=== PATIENT | female | born 1950 | race Caucasian/White ===

== ENCOUNTER → 2020-07-22 14:24 | Outpatient (CLI) | payer MEDICARE, SELFPAY | PROVIDERS: Visit Provider Urology | DX: R07.9 Chest pain, unspecified (principal); R00.2 Palpitations | CPT/HCPCS: 36415; 84436; 84443; 84479 ==

== ENCOUNTER → 2020-07-22 14:43 | Outpatient (CLI) | payer MEDICARE, SELFPAY ==
[2020-07-22 15:46] LABS: Free Thyroxine Index 4.1 ug/dL (5.93-13.13); T4 (Thyroxine) 11.7 ug/dl (5.53-11.0); Triiodothryronine (T3) Uptake 35 % (23.5-40.5)
[2020-07-22 16:00] LABS: Thyroid Stimulating Hormone 2.61 uIU/mL (0.465-4.68)
== END ==
PROVIDERS: PCP Family Medicine; Visit Provider Urology
DX: R07.9 Chest pain, unspecified (principal); R00.2 Palpitations; Z79.899 Other long term (current) drug therapy
CPT/HCPCS: 36415; 84436; 84443; 84479; 93270

== ENCOUNTER → 2020-08-14 06:53 | Outpatient (CLI) | payer MEDICARE, SELFPAY ==
--- NOTE | 2020-08-14 | CA_ITS ---
APPROVED REPORT Exam: Pharmacologic Technologist: Ruby Cline Ht: 5 ft 4 in Wt: 150 lbs BSA: 1.73 m2 HR: 86 bpm BP: 127/79 mmHg Indications: Chest pain, Palpitations Medical History Medications: Lisinopril,,,,, Aspirin,,,,, CHlorthalidone,,,,, Vitamin D2,,,,, Multivitamin with iron,,,,, Stress Test Details Test: LEXISCAN HR Resting HR: 90 bpm Max Heart Rate (APMHR): 151 bpm Max HR Achieved: 130 bpm Target HR (85% APMHR): 128 bpm % of APMHR: 86 Recovery HR: 97 bpm BP Resting BP: 127.0/79.0 mmHg Max BP: 127.0/79.0 mmHg Recovery BP: 107.0/55.0 mmHg ECG Clinical Exercise duration: 04:00 min Highest Stage Achieved: Exercise capacity: 1.0 METs Stress ECG Conclusion Resting EKG: Normal sinus rhythm, PVC's, BILLIE, borderline for LAE, LVH with ST-T abnormalities inferiorly and laterally suggesting strain pattern. Switched from exercise due to concerns for possible severe - loud, blowing systolic murmur at right uppper sternal border and LVH with strain pattern on EKG. Symptoms: Shortness of air, malaise. No chest pain. Arrhythmias/Ectopy: Frequent isolated PVCs. ST-T Changes: Exaggeration of baseline abnormalities. Conclusion: Non-diagnostic Lexiscan stress. Myoview images reported separately. Test Summary REST . . . . . . . Resting REST 06:07 . . 90 . 127/ 79 . . Stage 1 . . . . . . . Myoview Injected Stage 1 01:00 . . 122 . . . . Stage 2 01:00 . . 124 . . . . Stage 3 01:00 . . 119 . 121/ 59 . . Stage 4 01:00 . . 108 . 118/ 74 . Stop exercise at 04:00 RECOVERY 01:00 . . 103 . 108/ 52 . . RECOVERY 02:00 . . 104 . 108/ 52 . . RECOVERY 03:00 . . 100 . 108/ 52 . . RECOVERY 04:00 . . 109 . 107/ 55 . . RECOVERY 04:27 . . 105 . 107/ 55 . . Electronically signed by : Jroden Rios, 08/15/2020 12:58:32
--- NOTE | 2020-08-14 06:54 | NM_ITS ---
APPROVED REPORT Exam: Nuclear Stress Test Indication: Chest pain, Palpitations, HTN Patient Location: Outpatient Stress Tech: Ruby Cline NM Tech:Lisbeth Croft, ARRT, RT (R)(N) Ht: 5 ft 4 in Wt: 148 lbs Bra Size: 36A HR: 86 bpm BP: 127/79 mmHg BSA: 1.72 m2 BMI: 25.4 History: Chest pain, Palpitations, HTN Procedure: Patient received a 0.4 mg of intravenous Lexiscan, resting heart rate 86 bpm, resting blood pressure 127/79 mmHg, with Lexiscan maximum heart rate achived was 121 bpm which is Less than 85 % of the maximum predicted heart rate and blood pressure was 121/59 mmHg. With Lexiscan, patient denied any complaint of chest pain. Electrocardiogram Resting electrocardiogram showed sinus rhythm nonspecific ST-T changes, with Lexiscan there is less than 1.[address] segment depression noted from the baseline EKG. The EKG portion of the Lexiscan is nondiagnostic. Cardiac Stress and Resting SPECT Images: Cardiac Stress and Resting SPECT images were obtained using technetium 99m Myoview 30.9 mCi stress and 10.67 mCi at rest. Gated SPECT for analysis of segmental wall motion and calculation of the ejection fraction also done. Prone images were also obtained. Cardiac stress and resting SPECT images show uniform myocardial activity without segmental perfusion abnormality, computer derived ejection fraction is 44%, there is abnormal septal motion. Right ventricle is normal size and contractility. Conclusion: 1. The EKG portion of the Lexiscan is nondiagnostic. 2. No scintigraphic evidence of reversible ischemia seen, computer derived ejection fraction is 44% with abnormal septal motion, right ventricle is normal size and contractility. Electronically signed by : Jorden Rios, 08/15/2020 13:42:43
--- NOTE | 2020-08-14 08:56 | HMH.ITSHM ---
Current Home Medications as stated by this patient Inez Lopez or career services representative. []LISINOPRIL HCTZ VITAMIN D ASA IRON
== END ==
PROVIDERS: PCP Family Medicine; Visit Provider Urology
DX: I10 Essential (primary) hypertension (principal); R00.2 Palpitations; R07.9 Chest pain, unspecified
CPT/HCPCS: 78452; 93017; A9502; J2785

== ENCOUNTER → 2020-08-28 14:50 | Outpatient (CLI) | payer MEDICARE, SELFPAY ==
[2020-08-28 15:36] LABS: Basophils # 0.1 K/mm3 (0-0.2); Basophils % 0.8 % (0.1-2.0); Eosinophils # 0.1 K/mm3 (0.0-0.4); Hematocrit 42.2 % (37.0-47.0); Hemoglobin 13.4 g/dL (12.2-16.2); Lymphocytes # 2.1 K/mm3 (0.7-4.5); Lymphocytes % 26.9 % (10-50); Mean Corpuscular HGB Conc 31.8 g/dL (31.8-35.4); Mean Corpuscular Hemoglobin 25.9 pg (27.0-31.2); Mean Corpuscular Volume 81.3 fl (81-99); Mean Platelet Volume 6.9 fl (7.4-10.4); Monocytes # 0.4 K/mm3 (0.1-1.0); Monocytes % 4.7 % (1.7-9.3); Neutrophils # 5.2 K/mm3 (1.8-7.8); Neutrophils % 66.5 % (37.0-80.0); Platelet Count 270 K/mm3 (142-424); Red Blood Count 5.19 M/mm3 (4.20-5.40); Red Cell Distribution Width 15.9 % (11.5-17.5); White Blood Count 7.9 K/mm3 (4.8-10.8)
[2020-08-28 15:42] LABS: Chloride 100 mmol/L (98-107); Potassium 4.2 mmoL/L (3.5-5.1); Sodium 137 mmol/L (136-145)
[2020-08-28 15:45] LABS: Anion Gap 14.2 mEq/L (5-15); Blood Urea Nitrogen 24 mg/dl (7-17); Carbon Dioxide 27 mmol/L (22.0-30.0); Estimated Glomerular Filt Rate 41 ml/min (>60); GFR (African American) 49 ML/MIN (>60)
[2020-08-28 15:46] LABS: Calcium 10.4 mg/dl (8.4-10.2); Glucose 143 mg/dl (74-100)
[2020-08-28 15:57] LABS: Coronavirus 19 IgG Antibody Positive (Negative)
[2020-08-28 16:01] LABS: Coronavirus 19 IgM Antibody Positive (Negative)
== END ==
PROVIDERS: Visit Provider Urology
DX: I34.0 Nonrheumatic mitral (valve) insufficiency; I35.1 Nonrheumatic aortic (valve) insufficiency; I51.9 Heart disease, unspecified; R94.30 Abnormal result of cardiovascular function study, unspecified; I20.8 Other forms of angina pectoris; Z20.822 Contact with and (suspected) exposure to COVID-19; Z01.818 Encounter for other preprocedural examination; U07.1 COVID-19
CPT/HCPCS: 36415; 80048; 85025; 86328

== ENCOUNTER → 2020-08-29 10:29 | Outpatient (CLI) | payer MEDICARE, SELFPAY | PROVIDERS: PCP Family Medicine; Visit Provider Internal Medicine | DX: R76.8 Other specified abnormal immunological findings in serum (principal); U07.1 COVID-19 | CPT/HCPCS: U0003 ==

== ENCOUNTER → 2020-09-11 14:34 | Outpatient (CLI) | payer MEDICARE, SELFPAY ==
[2020-09-11 15:31] LABS: Anion Gap 15.5 mEq/L (5-15); Blood Urea Nitrogen 23 mg/dl (7-17); Calcium 9.9 mg/dl (8.4-10.2); Carbon Dioxide 27 mmol/L (22.0-30.0); Chloride 98 mmol/L (98-107); Estimated Glomerular Filt Rate 45 ml/min (>60); GFR (African American) 54 ML/MIN (>60); Glucose 175 mg/dl (74-100); Potassium 4.5 mmoL/L (3.5-5.1); Sodium 136 mmol/L (136-145)
[2020-09-11 15:48] LABS: Basophils # 0.1 K/mm3 (0-0.2); Basophils % 0.8 % (0.1-2.0); Eosinophils # 0.1 K/mm3 (0.0-0.4); Eosinophils % 0.9 % (0.1-12.0); Hematocrit 40.1 % (37.0-47.0); Hemoglobin 13.3 g/dL (12.2-16.2); Lymphocytes # 1.9 K/mm3 (0.7-4.5); Lymphocytes % 25.4 % (10-50); Mean Corpuscular HGB Conc 33.1 g/dL (31.8-35.4); Mean Corpuscular Hemoglobin 26.2 pg (27.0-31.2); Mean Corpuscular Volume 79.1 fl (81-99); Mean Platelet Volume 7.2 fl (7.4-10.4); Monocytes # 0.3 K/mm3 (0.1-1.0); Monocytes % 4.3 % (1.7-9.3); Neutrophils # 5.2 K/mm3 (1.8-7.8); Neutrophils % 68.6 % (37.0-80.0); Platelet Count 268 K/mm3 (142-424); Red Blood Count 5.07 M/mm3 (4.20-5.40); Red Cell Distribution Width 15.7 % (11.5-17.5); White Blood Count 7.6 K/mm3 (4.8-10.8)
[2020-09-12 11:46] LABS: Coronavirus 19 IgG Antibody Positive (Negative)
[2020-09-12 11:49] LABS: Coronavirus 19 IgM Antibody Positive (Negative)
== END ==
PROVIDERS: Visit Provider Urology
DX: I20.9 Angina pectoris, unspecified (principal); I34.0 Nonrheumatic mitral (valve) insufficiency; I35.1 Nonrheumatic aortic (valve) insufficiency; R94.30 Abnormal result of cardiovascular function study, unspecified; Z01.818 Encounter for other preprocedural examination; Z20.822 Contact with and (suspected) exposure to COVID-19; Z86.16 Personal history of COVID-19
CPT/HCPCS: 36415; 80048; 85025; 86328

== ENCOUNTER 2020-09-13 08:45 | Day surgery (SDC) | payer MEDICARE, SELFPAY ==
[2020-09-13] VITALS (16 sets, daily range): BP systolic 78–117; BP diastolic 39–61; PULSE 77–101; RESP 16–18; TEMP 36.6; O2SAT 92–100; BMI 25.4
--- NOTE | 2020-09-13 07:08 | IR_ITS ---
APPROVED REPORT Patient Location: Outpatient Lathe Spotter: DEE Vergara RT (R) PROCEDURES Left heart catheterization Left ventriculogram Selective coronary angiogram INDICATION High risk abnormal Myoview, Reduced ejection fraction Informed consent was obtained prior to the procedure. COMPLICATIONS NONE Estimated Blood Loss: LESS THAN 10 ML TECHNIQUE One percent lidocaine used to anesthetize the right anterior aspect of the wrist. The right radial artery was accessed via the Seldinger technique. A 6 [place] sheath was placed in the right radial artery. 2.5 mg of verapamil, 800 mcg of nitroglycerin, 1mg Lidocaine and 5000 U Heparin were given through the arterial sheath. A Actifiopa catheter was also used to perform left heart catheterization, left ventriculogram and selective coronary angiogram. At the end of the procedure the sheath was removed good hemostasis was achieved using Traclet band, patient was transferred to the postop holding area in stable condition. ANGIOGRAPHIC RESULTS The left main artery Normal The left anterior descending artery Has mild proximal 10% luminal irregularities The circumflex artery Nondominant with mild diffuse 10% luminal irregularities The right coronary artery Massively large dominant with mild 10% luminal irregularities The MCCOY ventriculogram reveals Reduced 40 to 45% The left ventricular end-diastolic pressure 10 mmHg 120 to 125 mm transaortic valve gradient was identified on catheter pullback IMPRESSION Mild nonflow limiting coronary artery disease Reduced ejection fraction Critical aortic stenosis PLAN 1. Echocardiogram today 2. Efforts will be made to have patient evaluated for aortic valve replacement Electronically signed by : Fadi Mcmanus, 09/13/2020 10:32:19
--- NOTE | 2020-09-13 10:35 | CA_ITS ---
APPROVED REPORT EXAM: Comprehensive 2D, Doppler, and color-flow Echocardiogram Automatic Lathe Tender: Xin Silverio RVT Ht: 5 ft 4 in Wt: 148lbs BSA: 1.72 BP: 74/52 mmHg Indications: severe as on cath,cp,htn 2D Dimensions LVOT 0.71 cm (M/F) 1.5-2.5 M-Mode Dimensions RVDd 1.06 cm (0.9-2.6) LA Diam 3.06 cm (1.9-4.0) LVDd 4.90 cm (3.5-5.7) Ao Diam 2.58 cm (2.0-3.7) LVDs 3.12 cm (3.5-5.7) IVSd 1.29 cm (0.6-1.1) PWd 0.95 cm (0.6-1.1) EF (Teich) 65.90% FS 36.30% EDV (Teich) 112.80 mL ESV (Teich) 38.50 mL LV Diastology E Decel Time 150.00 (160-240 msec) E/A Ratio 1.1 MED E' 4.00 (< 7 cm/sec) E'/MED E' Ratio 17.07 (>14) LAT E' 5.20 (<10 cm/sec) E/LAT E' Ratio 13.13 (>14) Aortic Valve LVOT Max 79.00 (70-110 cm/s) LVOT VTI 19.29 cm AoV Peak Luis. 289.00 (50-130 cm/s) AI PHT 680.00 ms AO Peak GR. 33.50 mmHg AO Mean GR. 21.30 (<5 mmHg) AO VTI 75.42 (18-25 cm) MARCELO (VTI) 0.10 (2.5-4.5 cm2) Mitral Valve MV E Max Luis. 68.00 (40-130 cm/s) MV A Velocity 62.00 (40-130 cm/s) E/A Ratio 1.10 MV Decel. Time 150.00 (160-240 ms) MV PHT 44.00 ms Pulmonary Valve PV Peak Velocity 163.00 (50-150 cm/s) Tricuspid Valve TR P. Velocity 178.00 cm/s RAP Estimate 10.00 mmHg RVSP 22.70 mmHg Left Ventricle Left atrium is mildly enlarged, left ventricle is normal size, mild concentric left ventricular hypertrophy, visually estimated ejection fraction 45 to 50% with no regional wall motion abnormality, diastolic parameters are inconclusive. Doppler evidence of low cardiac output state seen. Right Ventricle Right atrium and right ventricle are normal size and contractility. Aortic Valve Aortic valve is thickened and calcified with severe restriction to leaflet mobility, morphologically there is severe aortic stenosis, there is moderate aortic insufficiency, aortic outflow velocity is not accurately recorded for calculation of the aortic valve area. Mitral Valve Mitral valve leaflets are minimally thickened, there is mild mitral regurgitation. Tricuspid Valve Tricuspid grossly normal, there is mild tricuspid regurgitation, tricuspid regurgitation jet velocity is inadequate for calculation of the right ventricular systolic pressure. Pulmonic Valve Pulmonic valve is poorly visualized. Great Vessels Aortic root is normal size. Pericardium No significant pericardial effusion noted. Conclusion 1. Mildly enlarged left atrium, normal left ventricular size, mild concentric left ventricular hypertrophy, visually estimated ejection fraction 45 to 50% with no regional wall motion abnormality, Doppler evidence of low cardiac output state seen. 2. Thickened and calcified aortic valve with severe restriction to leaflet mobility, morphologically there is severe aortic stenosis, there is moderate aortic insufficiency. Aortic valve area is not accurately calculated in this study. 3. Mild mitral and tricuspid regurgitation. 4. No significant pericardial effusion noted. Electronically signed by : Jorden Rios, 09/13/2020 14:50:43
--- NOTE | 2020-09-13 15:38 | SUR.PHASEII ---
report called to Inessa boyd at [address]
[2020-09-13 17:42] LABS: Adenovirus,PCR Not Detected (NotDetected); Bordetella Pertussis Not Detected (NotDetected); Chlamydophila Pneumoniae, PCR Not Detected (NotDetected); Coronavirus 19, PCR Not Detected (NotDetected); Coronavirus 229E Not Detected (NotDetected); Coronavirus NL63 Not Detected (NotDetected); Coronavirus OC43 Not Detected (NotDetected); Coronovirus HKU1,PCR Not Detected (NotDetected); Human Metapneumovirus Not Detected (NotDetected); Influenza A, PCR Not Detected (NotDetected); Influenza AH1, 2009 Not Detected (NotDetected); Influenza AH1, PCR Not Detected (NotDetected); Influenza AH3,PCR Not Detected (NotDetected); Influenza B, PCR Not Detected (NotDetected); Mycoplasma Pneumoniae, PCR Not Detected (NotDetected); Parainfluenza 1, PCR Not Detected (NotDetected); Parainfluenza 2, PCR Not Detected (NotDetected); Parainfluenza 3, PCR Not Detected (NotDetected); Parainfluenza 4, PCR Not Detected (NotDetected); Respiratory Syncytial Virus Not Detected (NotDetected); Rhinovirus/Enterovirus Not Detected (NotDetected)
== END 2020-09-13 18:19 | disposition home or self-care (01) ==
LOC: CATHLAB 08:47 → 2ND 14:30
PROVIDERS: PCP Family Medicine; Visit Provider Internal Medicine
DX: I25.118 Atherosclerotic heart disease of native coronary artery with other forms of angina pectoris (principal); I34.0 Nonrheumatic mitral (valve) insufficiency; I35.1 Nonrheumatic aortic (valve) insufficiency; R94.30 Abnormal result of cardiovascular function study, unspecified; I42.9 Cardiomyopathy, unspecified; I10 Essential (primary) hypertension
CPT/HCPCS: 87581; 87633; 87798; 93306; 93458; 99152; C1725; C1769; J1644; Q9967